=== PATIENT | male | born 1945 | race Caucasian/White ===

== ENCOUNTER 2017-08-02 13:57 | Emergency (ER) | payer OTHER, MEDICARE ==
[2017-08-02] MEDS ORDERED: Amoxicillin/Clavulanate K 875-125 MG Tab ONE (15:30)
--- NOTE | 2017-08-02 17:07 | EDM.PDOC ---
ED HPI GENERAL MEDICAL PROBLEM - General Chief Complaint: General Stated Complaint: fish hook injury Time Seen by Provider: 08/02/17 14:30 Source of Information: Reports: Patient History Limitations: Reports: No Limitations - History of Present Illness INITIAL COMMENTS - FREE TEXT/NARRATIVE: According to patient he caught a fish and when he was trying to remove the hook , fish moved and the hook got stuck into his both hand, One meenakshi got stuck into the the right index finger base and the other meenakshi got stick into the left index finger tip. Pt had to cut the meenakshi around base of the left index finger, and got the rest of the hook from his right index finger. He is here to have the meenakshi that is embedded in the tip of the left index finger removed. Pt's last tetanus is about 10 years ago. ED ROS GENERAL - Review of Systems Review Of Systems: See Below Constitutional: Denies: Fever, Chills HEENT: Denies: Ear Pain, Eye Discharge, Rhinitis, Throat Pain, Throat Swelling Respiratory: Denies: Cough, Sputum Cardiovascular: Denies: Chest Pain, Lightheadedness GI/Abdominal: Denies: Nausea, Vomiting Skin: Reports: Other (left index finger tip: there is a small punctured wound seen over the tip of the left index finger. ther is no metal seen. Tender to palpation. No active bleeding. Normal neurovascular exam of the finger.). Denies: Pruritis, Rash ED EXAM, GENERAL - Physical Exam Exam: See Below Exam Limited By: No Limitations General Appearance: Alert, WD/WN, No Apparent Distress Eye Exam: Bilateral Eye: EOMI, PERRL Ears: Normal External Exam, Normal Canal, Hearing Grossly Normal, Normal TMs Ear Exam: Bilateral Ear: Auricle Normal, Canal Normal, TM normal Nose: Normal Inspection, Normal Mucosa, No Blood Throat/Mouth: Normal Inspection, Normal Lips, Normal Teeth, Normal Gums, Normal Oropharynx, Normal Voice, No Airway Compromise Head: Atraumatic, Normocephalic Neck: Normal Inspection, Supple, Non-Tender, Full Range of Motion Peripheral Pulses: 0: Carotid (R) Extremities: Normal Inspection, Normal Range of Motion, Non-Tender, No Pedal Edema Skin Exam: Warm, Intact, Other (left index finger: ther is a small puncture wound at the tip fo the finger. tender to pressure. normal neuro exam ) Course - Vital Signs Text/Narrative:: The embedded meenakshi was removed under aseptic precautions under local anesthesia using 1 % lido. tube dressing done. the other hand puncture wound cleaned. He did receive Tdap today. Also i have empirically started him on augmentin 875mg BID for 10 days. Wound care discussed. Advised to return to clinic on thursday for recheck. Departure - Departure Time of Disposition: 16:00 Disposition: Home, Self-Care 01 Condition: Good Clinical Impression: Fish hook injury of finger of left hand - Discharge Information Referrals: PCP,None [Primary Care Provider] - Forms: ED Department Discharge - Problem List & Annotations (1) Fish hook injury of finger of left hand SNOMED Code(s): 42621969 Code(s): S69.92XA - UNSP INJURY OF LEFT WRIST, HAND AND FINGER(S), INIT ENCNTR Status: Acute Current Visit: Yes - Problem List Review Problem List Initiated/Reviewed/Updated: Yes - Assessment/Plan Assessment:: Left index finger fish hook Plan: The embedded meenakshi was removed under aseptic precautions under local anesthesia using 1 % lido. tube dressing done. the other hand puncture wound cleaned. He did receive Tdap today. Also i have empirically started him on augmentin 875mg BID for 10 days. Wound care discussed. Advised to return to clinic on thursday for recheck.
== END 2017-08-02 15:50 | disposition home or self-care (01) ==
LOC: LB.ED 13:57
DX: S60.451A Superficial foreign body of left index finger, initial encounter (principal); W26.8XXA Contact with other sharp object(s), not elsewhere classified, initial encounter; W45.8XXA Other foreign body or object entering through skin, initial encounter; Y92.828 Other wilderness area as the place of occurrence of the external cause
CPT/HCPCS: 99282; A9270; 99283